=== PATIENT | female | born 1960 | race Caucasian/White ===

== ENCOUNTER 2016-12-14 19:20 | Emergency (ER) | payer MEDICAID ==
[~2016-12-14] VITALS: Ht 167.6 cm; Wt 88.6 kg
[~2016-12-14 19:20] MED LIST: ADVIL200 MG PO; AMITRIPTYLINE H10 M1; AMOXICILLIN 50500 MG PO; BENTYL 20MG20 MG/TAB PO; CELEXA 20MG20 MG/TAB PO; DIABETA 5MG5 MG/TAB PO; FLEXERIL 1010 MG/TAB PO; GLUCOPHAGE500 MG/TAB PO; HORIZANT600 MG PO; KLONOPIN WAFER0.5 MG PO; NORCO 325 MG-51 TAB PO; PREVACID 30MG30 M1 PO; PROVENTIL0.09 MG/A1 IH; RYBIX ODT50 MG PO; TYLENOL 325MG325 MG PO; ZANTAC 150MG T150 MG PO
[2016-12-14 19:22] VITALS: TEMP 97.3
[2016-12-14 19:51] LABS: BASO # 0.1 (0.0-0.2); BASO % 0.8 % (0.0-2.0); EOS # 0.1 (0.0-0.7); EOS % 1.6 % (0-4.0); GRAN # 5.4 (1.4-6.5); GRAN % 72.1 % (42.2-75.2); HEMATOCRIT 37.9 % (37.0-47.0); LYMPH # 1.2 (1.2-3.4); LYMPH % 15.8 % (20.0-51.0); MEAN CELL VOLUME 95 fl (80.0-100.0); MEAN CORPUSCULAR HEMOGLOBIN 30 pg (27.0-31.0); MEAN CORPUSCULAR HGB CONC 32 g/dl (33.0-37.0); MEAN PLATELET VOLUME 11.1 fl (7.4-10.4); MONO # 0.7 (0.1-0.6); MONO % 9.2 % (1.7-9.3); PLATELET COUNT 139 K/mm3 (130-400); RED BLOOD COUNT 3.99 M/mm3 (4.10-5.30); REDCELL DISTRIBUTION WIDTH-CV 14.3 % (11.5-14.5); WHITE BLOOD COUNT 7.5 K/mm3 (4.8-10.8)
[2016-12-14 20:03] LABS: ADJUSTED CALCIUM 10.2 mg/dL (8.4-10.2); ALBUMIN 3.6 gm/dL (3.5-5.0); BILIRUBIN,TOTAL 1.4 mg/dL (0.0-1.0); CALCIUM 9.9 mg/dL (8.4-10.2); CREATININE, serum 1.3 mg/dL (0.52-1.25); POTASSIUM 4.8 mmol/L (3.4-5.0); TOTAL PROTEIN 7.3 gm/dL (6.4-8.2)
[2016-12-14] MEDS ORDERED: LASIX 20MG TABL20 MG PO (20:31)
[2016-12-14] MEDS ORDERED: VASOTEC 5MG5 MG/TAB PO (20:31)
[2016-12-14] MEDS ORDERED: NORCO 325 MG-101 TAB PO (20:32)
[2016-12-14] MEDS ORDERED: NEURONTIN400 MG/CAP PO (20:32)
[2016-12-14] MEDS ORDERED: NOVOLOG MIX 70/33 ML (20:33)
[2016-12-14] MEDS ORDERED: NITROSTAT0.4 MG/TAB SL (20:34)
[2016-12-14] MEDS ORDERED: ATROPINE SULFATE5 ML OP (20:35)
[2016-12-14] MEDS ORDERED: XARELTO10 MG PO (20:35)
[2016-12-14] MEDS ORDERED: PREDFORTE5ML (20:36)
[2016-12-14] MEDS ORDERED: ZYMAXID OP (20:36)
[2016-12-14 21:45] VITALS: BP 116/70; PULSE 76
== END 2016-12-14 22:00 | disposition home or self-care (01) ==
LOC: COL.ER 19:20
PROVIDERS: Emergency Medicine
DX: S20.212A Contusion of left front wall of thorax, initial encounter (principal); E86.0 Dehydration; E11.65 Type 2 diabetes mellitus with hyperglycemia; M79.7 Fibromyalgia; J44.9 Chronic obstructive pulmonary disease, unspecified; Z79.4 Long term (current) use of insulin; F17.210 Nicotine dependence, cigarettes, uncomplicated; G89.29 Other chronic pain; W18.30XA Fall on same level, unspecified, initial encounter; Y92.000 Kitchen of unspecified non-institutional (private) residence as the place of occurrence of the external cause; Z98.41 Cataract extraction status, right eye
CPT/HCPCS: J1815; J1885; J2765; J7030